=== PATIENT | male | born 1985 | race Two or more races ===

== ENCOUNTER 2024-10-22 13:04 | Emergency (ER) | payer OTHER, SELFPAY ==
[2024-10-22 13:17] VITALS: BP 122/74; PULSE 64; RESP 18; TEMP 36.5; O2SAT 99; BMI 25.0
--- NOTE | 2024-10-22 13:21 | XR_ITS ---
Examination: CT brain head without contrast. 2-D sagittal coronal reconstructions Date and time of exam:October 22, 2024 1352 hours INDICATIONS: Injury to the head today, head pain CTDI: vol (mGy):50 DLP: (mGycm):974 Technique: Multiple CT axial sections of the brain have been obtained, 5 mm slice thickness. Contrast has not been administered. 2-D sagittal, coronal reconstructions have been obtained Low dose protocols were performed. One or more of the following dose reduction techniques were used; automated exposure control, adjustment of the mA and/or KV according to patient size, use of iterative reconstruction technique. Findings: No significant ventricular enlargement. Intra-axial or extra-axial hemorrhage density is not seen. No mass effect or midline shift Basal cisterns are not remarkable. Fourth ventricle is midline. Cranial vault intact. Impression: Negative for acute hemorrhage, mass effect or midline shift
--- NOTE | 2024-10-22 13:21 | XR_ITS ---
Examination: CT maxillofacial, without intravenous contrast. 2-D sagittal reconstructions. 3-D reconstructions. Date and time of exam:October 22, 2024 1352 hours INDICATIONS: A tree log fell on the patient's today with injury to the face, facial pain CTDI: vol (mGy):17.9 DLP: (mGycm):363. Technique: Multiple axial images of maxillofacial region, 3.0 mm slice thickness. 2-D sagittal and coronal reconstructions. 3-D reconstructions. Low dose protocols were performed. One or more of the following dose reduction techniques were used; automated exposure control, adjustment of the mA and/or KV according to patient size, use of iterative reconstruction technique. Findings: 2 mm in the soft tissue anterior to the mandible on the left side image 28 Mandible maxilla intact No nasal bone fracture No depression zygomatic arch Orbital rims intact Frontal bone intact IMPRESSION: No acute facial fracture
[2024-10-22] MEDS: ACETAMINOPHEN 500 MG TABLET 1000 MG PO (13:31)
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
== END 2024-10-22 15:33 | disposition home or self-care (01) ==
PROVIDERS: Emergency Provider Emergency Medicine
DX: S00.81XA Abrasion of other part of head, initial encounter (principal); W22.8XXA Striking against or struck by other objects, initial encounter; Y92.89 Other specified places as the place of occurrence of the external cause; Y99.0 Civilian activity done for income or pay
CPT/HCPCS: 70450; 70486; 99283; A9270

== ENCOUNTER 2024-11-17 14:15 | Emergency (ER) | payer OTHER, SELFPAY ==
[2024-11-17 14:17] VITALS: BMI 25.8
[2024-11-17 15:15] VITALS: BP 119/77; PULSE 72; RESP 16; TEMP 36.6; O2SAT 96
--- NOTE | 2024-11-17 16:06 | XR_ITS ---
Examination: CT maxillofacial, without intravenous contrast. 2-D sagittal reconstructions. 3-D reconstructions. Date and time of exam:November 17, 2024, 1614 hrs. Indications: Injury to the face one month ago with facial pain and difficulty breathing CTDI: vol (mGy):17.9 DLP: (mGycm):364 Technique: Multiple axial images of maxillofacial region, 3.0 mm slice thickness. 2-D sagittal and coronal reconstructions. 3-D reconstructions. Low dose protocols were performed. One or more of the following dose reduction techniques were used; automated exposure control, adjustment of the mA and/or KV according to patient size, use of iterative reconstruction technique. Findings: Frontal bone frontal sinuses intact Orbital rims intact No depression zygomatic arches. No nasal septum fracture Chronic ethmoid frontal and maxillary sinusitis Mild hypertrophy inferior nasal turbinates Maxilla mandible intact Impression: No acute facial fracture Chronic frontal ethmoid maxillary sinusitis Mild hypertrophy inferior nasal turbinates.
--- NOTE | 2024-11-17 18:20 | PD.EDEPIST ---
ED Epistaxis RME/HPI General Chief complaint: Epistaxis/Nasal Foreign Body Stated complaint: DIFF BREATHING LRFT NOSTRIL S/P HIT NOSE 10/22 Time Seen by Provider: 11/17/24 15:01 Arrival date/time: 11/17/24 14:15 This is a case of 39-year-old male with no medical history came in in the emergency room due to problem breathing through the nose postnasal drip nasal discharge and 1 episode of nosebleeding yesterday but last only 30 seconds patient had nose injury 10/22/2024 where the tree fell on his face patient was seen here where CT scan of the head and CT scan of the face were performed and noted normal no fracture no intracranial bleeding patient did not have any headache nausea vomiting dizziness numbness weakness tingling sensation or blurring of vision but persistent nose pain thus patient decided to start consult here in the emergency room Limitations: no limitations Related Data Previous Rx's ?Medication ?Instructions ?Recorded ibuprofen 800 mg tablet 800 mg PO TID PRN pain #30 tabs 10/22/24 amoxicillin 875 mg-potassium 1 tab PO BID #20 tabs 11/17/24 clavulanate 125 mg tablet fluticasone propionate 50 1 spray intranasal BID #16 grams 11/17/24 mcg/actuation nasal spray,suspension (Flonase Allergy Relief) prednisone 20 mg tablet 20 mg PO QDAY 5 days #5 tabs 11/17/24 Allergies Allergy/AdvReac Type Severity Reaction Status Date / Time No Known Allergies Allergy Verified 11/17/24 14:21 Review of Systems Constitutional Constitutional: Reports system reviewed and no additional complaints, except as documented Cardiovascular Cardiovascular: Reports system reviewed and no additional complaints, except as documented and Reports as per HPI Respiratory Respiratory: Reports system reviewed and no additional complaints, except as documented and Reports as per HPI Gastrointestinal Gastrointestinal: Reports system reviewed and no additional complaints, except as documented and Reports as per HPI Genitourinary Genitourinary: Reports system reviewed and no additional complaints, except as documented Musculoskeletal Musculoskeletal: Reports system reviewed and no additional complaints, except as documented and Reports as per HPI Neurologic Neurologic: Reports system reviewed and no additional complaints, except as documented and Reports as per HPI Past Medical History Social History SMOKING STATUS: Never smoker ED Exam General Limitations: Present no limitations General appearance: Present alert, in no apparent distress and other (Patient is awake alert oriented not in distress nontoxic looking well-hydrated well-nourished) Head Head exam: Present atraumatic, normocephalic and normal inspection Eye Eye exam: Present normal appearance, PERRL, EOMI and other (PERRL EOM intact normal conjunctiva no papilledema no hyphema) ENT ENT exam: Present normal exam, normal oropharynx, mucous membranes moist and other (Ear and throat exam are normal there is no contusion there is no hematoma no crepitation no deformity on the external nose nostrils turbinates were swollen and red but no nasal septal deviation no polyps mild tenderness in the frontal and maxillary sinus) Neck Neck exam: Present normal inspection, full ROM and trachea midline; Absent tenderness, meningismus, lymphadenopathy or thyromegaly Chest Chest inspection: Present normal inspection and symmetric chest wall rise; Absent tenderness Respiratory Respiratory exam: Present normal lung sounds bilaterally; Absent respiratory distress, wheezes, stridor, accessory muscle use or prolonged expiratory phase Cardiovascular Cardiovascular exam: Present regular rate, normal rhythm and normal heart sounds; Absent bradycardia, tachycardia, irregular rhythm, systolic murmur or diastolic murmur Abdominal Exam Abdominal exam: Present soft and normal bowel sounds Extremities Exam Extremities exam: Present normal inspection and full ROM Back Exam Back exam: Present normal inspection and full ROM Neurological Exam Neurological exam: Present alert, oriented X3, CN II-XII intact, normal gait and reflexes normal; Absent motor sensory deficit Psychiatric Psychiatric exam: Present normal affect and normal mood Skin Skin exam: Present warm, dry, intact and normal color Course Quality Measures none Orders Category Date Time Status CT facial bones wo con Stat Exams 11/17/24 16:06 Completed Vital Signs Vital signs: Vital Signs Temperature 97.8 F 11/17/24 15:15 Pulse Rate 72 11/17/24 15:15 Respiratory Rate 16 11/17/24 15:15 Blood Pressure 119/77 11/17/24 15:15 Pulse Oximetry (%) 96 11/17/24 15:15 Oxygen Delivery Method Room Air 11/17/24 15:15 Oxygen saturation is 96% in room air Epistaxis MDM Narrative MDM Narrative:: This is a case of 39-year-old male with no medical history came in in the emergency room due to problem breathing through the nose postnasal drip nasal discharge and 1 episode of nosebleeding yesterday but last only 30 seconds patient had nose injury 10/22/2024 where the tree fell on his face patient was seen here where CT scan of the head and CT scan of the face were performed and noted normal no fracture no intracranial bleeding patient did not have any headache nausea vomiting dizziness numbness weakness tingling sensation or blurring of vision but persistent nose pain thus patient decided to start consult here in the emergency room physical examination patient is awake alert oriented not in distress nontoxic looking well-hydrated well-nourished neurological exam is normal awake alert oriented x 4 no focal deficit GCS within normal 15 steady gait HEENT exam noted as throat and ear were normal there is mild tenderness on the external nose but no contusion no hematoma no deformity no crepitation noted mild tenderness on the frontal and maxillary sinus noted nostrils and turbinates were swollen and red no nasal septum deviation no nasal polyps the rest of the physical examination were normal patient is not actively have nosebleeding vital signs stable CT scan were performed and noted no fracture ethmoid sinusitis with hypertrophy of the left turbinates which coincide with my physical examination based on my physical examination and history patient symptoms suggestive of sinusitis infection patient was discharged with Augmentin Flonase and prednisone to decrease the inflammation patient will follow-up with PCP in 2 days for evaluation and if symptoms persist need to see an ENT specialist for any worsening symptoms or any emergent concern return precaution to the ER is advised Patient was discharged with comfortable condition walking with stable gait. Patient verbalized no further complains explained diagnosis and answered patient question. Patient is comfortable with the proposed management plan including the need to follow up with his/her primary care physician and any specialist if applicable Discussed patient for any urgent condition or worsening sx, He/She needed to go to emergency room immediately or call 911. Patient acknowledge the responsibility to follow up as instructed and to monitor her/his symptoms. For any persistence of the symptoms for more than 3-5 days return precaution advised. Discussed the result of the test and was given printed discharge instruction Patient data External records reviewed:: [facility] previous records Clinical information provided by:: patient Social determinants that could affect healthcare access:: none Patient has the following chronic illnesses:: None How is presenting disease/condition affected by chronic disease/condition?: no chronic disease Evaluation data The following diagnostics were reviewed and interpreted by me:: radiology exam(s) Lab and/or radiology exams considered but not ordered:: Reviewed Interpretation Summary: Reviewed Medications / Prescriptions Medications or Prescriptions considered but not ordered:: Given Medication administrations:: Given Consultations Consultation(s) initiated? (list below): No Diagnosis Epistaxis Differential Diagnosis: nasal bone fracture, anterior epistaxis, posterior epistaxis and other (Sinusitis) Most likely diagnosis given after review of the tests above:: Sinusitis Admission Indicated Admission indicated?: not indicated Explain why admission is indicated or not indicated:: Not indicated Admission Request Was there a request for admission?: No Admission Attestation Admission request attestation: Not indicated Disposition Plan Disposition Plan: Discharge Discharge Attestation Discharge Attestation: The patient and all family members were given an opportunity to ask questions and understood the discharge instructions. Discharge instructions specifically effects, indications for sooner follow up or return to the emergency department, and the expected course of current diagnosis. Patient condition: Stable Discharge Plan Plan Patient Disposition: HOME (Self Care) Patient condition on transfer: Stable Prescriptions/Referrals Prescriptions/Med Rec: New amoxicillin-pot clavulanate 875-125 mg tablet 1 tab PO BID Qty: 20 0RF prednisone 20 mg tablet 20 mg PO QDAY 5 Days Qty: 5 0RF fluticasone propionate [Flonase Allergy Relief] 50 mcg/actuation spray,suspension 1 spray intranasal BID Qty: 16 0RF Rx Instructions: administer into each nostril No Action ibuprofen 800 mg tablet 800 mg PO TID PRN (Reason: pain) Qty: 30 0RF Referrals: No Primary/Family,Physician [Primary Care Provider] - In 1 week Problem List Clinical Impression: Acute infection of nasal sinus Patient/Caregiver Discharge Instructions Education Materials: ED Sinusitis (Antibiotic Treatment) Additional Instructions: Follow-up with your primary care physician in 2 days for reevaluation and if symptoms persist need to be referred to ENT for further evaluation and treatment recurrence persistent worsening symptoms or any emergent concern call 911 or go to the nearest emergency room take your medication as directed finish the course of antibiotic steam inhalation is advised Print Language: Indonesian Stand Alone Forms: Ilana Award Info., Patient Portal Info Letter PA/SUBSTATION OPERATOR Supervising Physician PA/SUBSTATION OPERATOR Supervising Physician: dr [email or web address]
== END 2024-11-17 19:00 | disposition home or self-care (01) ==
PROVIDERS: Emergency Provider Emergency Medicine
DX: J01.00 Acute maxillary sinusitis, unspecified (principal)
CPT/HCPCS: 70486; 99283

== ENCOUNTER 2024-11-24 07:02 | Emergency (ER) | payer OTHER, SELFPAY ==
[2024-11-24 07:10] VITALS: BP 126/76; PULSE 78; RESP 17; TEMP 36.7; O2SAT 99; BMI 25.9
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
== END 2024-11-24 07:42 | disposition home or self-care (01) ==
LOC: SERX 07:40
PROVIDERS: Emergency Provider Emergency Medicine
DX: J34.89 Other specified disorders of nose and nasal sinuses (principal)
CPT/HCPCS: 99281